=== PATIENT | male | born 1945 | race Caucasian/White ===

== ENCOUNTER 2019-12-28 00:24 | Outpatient (CLI) | payer MEDICARE, SELFPAY ==
[2019-12-28 18:58] LABS: SARS-CoV-2 RNA PCR Negative
== END 2019-12-28 00:25 | disposition home or self-care (01) ==
LOC: ANHCOVIDDT 00:25
PROVIDERS: PCP Internal Medicine; Visit Provider Internal Medicine Gastroenterology
DX: Z01.812 Encounter for preprocedural laboratory examination (principal); Z20.828 Contact with and (suspected) exposure to other viral communicable diseases
CPT/HCPCS: 87635; C9803; U0003

== ENCOUNTER 2020-01-10 00:23 | Outpatient (CLI) | payer MEDICARE, SELFPAY ==
[2020-01-10 17:13] LABS: SARS-CoV-2 RNA PCR Negative
== END 2020-01-10 00:24 | disposition home or self-care (01) ==
LOC: ANHCOVIDDT 00:24
PROVIDERS: PCP Internal Medicine; Visit Provider Internal Medicine Gastroenterology
DX: Z01.812 Encounter for preprocedural laboratory examination (principal); Z11.59 Encounter for screening for other viral diseases
CPT/HCPCS: 87635; C9803; U0003

== ENCOUNTER 2020-01-12 00:56 | Day surgery (SDC) | payer MEDICARE, SELFPAY ==
[2019-12-22 12:37] VITALS: BMI 31.1
[2020-01-12 06:19] VITALS: BP 122/70; PULSE 53; RESP 16; TEMP 36.1; O2SAT 98; BMI 43.2
[2020-01-12] MEDS: LACTATED RINGERS 1,000 ML 150 ML IV CONT (06:35)
--- NOTE | 2020-01-12 07:04 | WPDANESEPPF ---
Anes - Initial Pre Proc Eval Procedure: Operation Date: 01/12/20 07:30 Proposed Procedures p Screening Colonoscopy - Selvin Sequeira MD Date/Time: 01/12/20 07:04 Surgeon: Selvin Sequeira MD Pre Op Diagnosis: neoplasm screening, positive cologuard Patient Data Age: 74 Gender: M Height: 1.57 m Weight: 107.4 kg Last Vital Signs Temp 36.1 C L 01/12/20 06:19 Pulse 53 L 01/12/20 06:19 Resp 16 01/12/20 06:19 BP 122/70 01/12/20 06:19 Pulse Ox 98 01/12/20 06:19 Allergies Allergy/AdvReac Type Severity Reaction Status Date / Time No Known Allergies Allergy Verified 01/12/20 06:17 Home Medications Medication Instructions Recorded Confirmed Type eplerenone 25 mg tablet 25 mg PO DAILY #90 tablet 10/05/19 12/22/19 Rx furosemide 20 mg tablet 20 mg PO QAM #30 tablet 11/05/19 12/22/19 Rx amlodipine 5 mg tablet 5 mg PO DAILY 11/12/19 12/22/19 History apixaban 5 mg tablet 5 mg PO BID 11/12/19 12/22/19 History carvedilol 12.5 mg tablet 12.5 mg PO Q12H 11/12/19 12/22/19 History finasteride 5 mg tablet 5 mg PO DAILY 11/12/19 12/22/19 History atorvastatin 10 mg tablet 10 mg PO DAILY #90 tablet 12/15/19 12/22/19 Rx lisinopril 40 mg PO DAILY 12/22/19 12/22/19 History potassium chloride 20 mEq 20 meq PO DAILY #90 tablet 01/03/20 Rx tablet,extended release Patient hx anesthesia problems: none Family hx anesthesia problems: none PMFSH Past Medical History Medical History (Updated 11/19/19 @ 10:21 by JADE Chris) A-fib Chronic knee pain Dysuria Essential (primary) hypertension History of measles, mumps, or rubella Hypercholesteremia Osteoarthritis Surgical History Surgical History (Updated 01/11/20 @ 08:55 by Anish Eng DO) History of knee replacement procedure of left knee Hx of CABG x1, 2016 Family History Family History (Updated 11/12/19 @ 10:37 by Venice Gross MA) Sibling Hypertension Father Diabetes mellitus Heart disease Mother Heart disease Son Cerebrovascular accident, Onset Age: 7 Stroke Social History Social History Smoking status: Never smoker Alcohol intake: current Anes - Eval Final PreProcedure Day of Procedure 01/12/20 07:04 Patient weight: morbidly obese Heart: regular rate and rhythm Lungs: clear to auscultation and normal air movement Airway: Mallampati scale class II Neurological: alert and oriented Last oral intake: >/= 8 hours ASA classification: III Emergent: no Anesthetic plan: proceed Anesthesia type and monitoring: general GIVS and standard monitoring Informed Consent: The patient's anesthetic plan and its attendant risks and benefits were discussed with the patient/family/POA. Questions were solicited and answers provided to the satisfaction of the patient/family/POA.
--- NOTE | 2020-01-12 07:09 | PM.HPGS ---
History of Present Illness History of Present Illness Consent: Risks, benefits, and alternatives have been discussed and questions answered. Patient agrees to proceed with procedure. Chief complaint: neoplasm screening, positive cologuard Narrative: Rambo Fung is a 74 year old W male Referred for screening colonoscopy secondary to a positive colo guard test. Patient states he had a colonoscopy 10 years ago when he was living in [place]. Patient is asymptomatic. There is no known family history of colon polyps or colon cancer. However he has noticed some increased constipation recently. He said he has had some hematochezia with straining with bowel movements. No weight loss. [facility] Past Medical History Medical History (Updated 11/19/19 @ 10:21 by JADE Chris) A-fib Chronic knee pain Dysuria Essential (primary) hypertension History of measles, mumps, or rubella Hypercholesteremia Osteoarthritis Surgical History Surgical History (Updated 01/12/20 @ 07:12 by Selvin Sequeira MD) History of inguinal herniorrhaphy History of knee replacement procedure of left knee History of repair of thoracic aortic aneurysm History of tonsillectomy and adenoidectomy Hx of CABG x1, 2016 Family History Family History (Updated 11/12/19 @ 10:37 by Venice Gross MA) Sibling Hypertension Father Diabetes mellitus Heart disease Mother Heart disease Son Cerebrovascular accident, Onset Age: 7 Stroke Social History Social History Smoking status: Never smoker Alcohol intake: current Meds Home Medications and Allergies Home Medications Medication Instructions Recorded Confirmed Type eplerenone 25 mg tablet 25 mg PO DAILY #90 tablet 10/05/19 12/22/19 Rx furosemide 20 mg tablet 20 mg PO QAM #30 tablet 11/05/19 12/22/19 Rx amlodipine 5 mg tablet 5 mg PO DAILY 11/12/19 12/22/19 History apixaban 5 mg tablet 5 mg PO BID 11/12/19 12/22/19 History carvedilol 12.5 mg tablet 12.5 mg PO Q12H 11/12/19 12/22/19 History finasteride 5 mg tablet 5 mg PO DAILY 11/12/19 12/22/19 History atorvastatin 10 mg tablet 10 mg PO DAILY #90 tablet 12/15/19 12/22/19 Rx lisinopril 40 mg PO DAILY 12/22/19 12/22/19 History potassium chloride 20 mEq 20 meq PO DAILY #90 tablet 01/03/20 Rx tablet,extended release Allergies Allergy/AdvReac Type Severity Reaction Status Date / Time No Known Allergies Allergy Verified 01/12/20 06:17 Vital Signs Vital Signs - 24 hr 01/12/20 06:19 Temperature 36.1 C L Pulse Rate 53 L Respiratory Rate 16 Blood Pressure 122/70 Pulse Oximetry 98 Exam Const: Orientation/consciousness: patient oriented x3 Resp: Auscultation: clear to auscultation bilaterally Cardio: Rate: regular rate Rhythm: regular rhythm Heart sounds: no murmurs GI: GI Palp: Yes Soft to palpation, No Tenderness to palpation present (GI), Yes No hepatosplenomegaly present and No Palpable mass present Auscultation: normal bowel sounds Neuro: General: patient oriented x3 and no focal motor deficits Extrem: General: no pedal edema Assessment and Plan Additional Plan screening colonoscopy secondary positive colo guard test
--- NOTE | 2020-01-12 07:45 | SUR.OPER ---
0720: CALLED SPOUSE TO MAKE AWARE THAT PT NOW GOING TO PROCEDURE. NO ANSWER 0745: SPOUSE CALLED AND NOTIFIED THAT PT IN PROCEDURE. NOTIFIED TO BE AT HOSPITAL BY 0815, STATES UNDERSTANDING.
[2020-01-12 08:02] VITALS: BP 106/64; PULSE 46; RESP 19; O2SAT 95
[2020-01-12 08:12] VITALS: BP 115/72; PULSE 54; RESP 15; O2SAT 95
[2020-01-12 08:22] VITALS: BP 106/64; PULSE 47; RESP 15; O2SAT 96
== END 2020-01-12 08:40 | disposition home or self-care (01) ==
PROVIDERS: PCP Internal Medicine; Visit Provider Internal Medicine Gastroenterology
PROC: 0DJD8ZZ Inspection of Lower Intestinal Tract, Via Natural or Artificial Opening Endoscopic (ICD-10-PCS; CPT 45378; principal; 2020-01-12 07:30)
DX: Z12.11 Encounter for screening for malignant neoplasm of colon (principal); K63.5 Polyp of colon; K52.9 Noninfective gastroenteritis and colitis, unspecified; K64.8 Other hemorrhoids; R19.5 Other fecal abnormalities; I48.91 Unspecified atrial fibrillation; I10 Essential (primary) hypertension; E78.00 Pure hypercholesterolemia, unspecified; M19.90 Unspecified osteoarthritis, unspecified site; Z95.1 Presence of aortocoronary bypass graft; Z79.01 Long term (current) use of anticoagulants; E66.01 Morbid (severe) obesity due to excess calories; Z68.41 Body mass index [BMI] 40.0-44.9, adult
CPT/HCPCS: 45385; 45381; 45380; 88305; J2704; J7120